=== PATIENT | male | born 1945 | race Caucasian/White ===

== ENCOUNTER 2016-12-14 18:31 | Emergency (ER) | payer OTHER, MEDICARE ==
[~2016-12-14] VITALS: Ht 175.3 cm; Wt 98.5 kg
[~2016-12-14 18:31] MED LIST: CLOPIDOGREL75 MG PO; LISINOPRIL2.5 MG PO; LOPRESSOR50 MG PO; SIMVASTATIN40 MG PO; ZETIA10 MG PO
[2016-12-14 18:47] VITALS: BP 164/83
== END 2016-12-14 19:30 | disposition left against medical advice (07) ==
LOC: EME 18:31
DX: Z04.1 Encounter for examination and observation following transport accident (principal); Z53.21 Procedure and treatment not carried out due to patient leaving prior to being seen by health care provider

== ENCOUNTER → 2017-03-11 | Outpatient (CLI) | payer OTHER, MEDICARE ==
[~2017-03-11] VITALS: Ht 172.7 cm; Wt 55.4 kg
[~2017-03-11] MED LIST changes: +OMEPRAZOLE40 M1 PO; +ZESTRIL2.5 MG PO; +ZOCOR40 MG PO; +ZOFRAN4 MG PO
== END | disposition home or self-care (01) ==
LOC: AMB 13:18
DX: K29.70 Gastritis, unspecified, without bleeding (principal); K63.89 Other specified diseases of intestine; R11.2 Nausea with vomiting, unspecified; R63.4 Abnormal weight loss; R14.0 Abdominal distension (gaseous); K21.9 Gastro-esophageal reflux disease without esophagitis; Z87.891 Personal history of nicotine dependence; Z88.5 Allergy status to narcotic agent
CPT/HCPCS: 88305; 88342 TC